=== PATIENT | female | born 1995 | race Caucasian/White ===

== ENCOUNTER 2016-11-09 17:00 | Emergency (ER) | payer OTHER | END 2016-11-09 18:00 | disposition home or self-care (01) | LOC: ER1 17:00 | DX: L02.11 Cutaneous abscess of neck (principal); F17.210 Nicotine dependence, cigarettes, uncomplicated | CPT/HCPCS: 10061; 87070; 87077; 87186; 87205; 99283 ==

== ENCOUNTER 2020-11-29 05:51 | Inpatient (IN) | payer OTHER ==
[~2020-11-29] VITALS: Ht 157.5 cm; Wt 97.5 kg
[2020-11-29 07:50] LABS: HEMOGLOBIN 10.3 gm/dl (12.3-15.3); RED BLOOD COUNT 3.67 M/UL (4.00-5.10); WHITE BLOOD COUNT 13.5 K/UL (4.5-11.0)
[2020-11-30] MEDS ORDERED: IBUPROFEN600 MG PO (10:52)
[2020-11-30] MEDS ORDERED: STOOL SOFTENER100 MG PO (10:52)
[2020-11-30] MEDS ORDERED: HYDROCODON-ACE1 EAC4 PO (10:54)
== END 2020-11-30 02:55 | disposition home or self-care (01) | DRG 807 ==
LOC: OB 05:51
PROVIDERS: ADMIT Obstetrics & Gynecology
PROC: 4A1HX4Z Monitoring of Products of Conception, Cardiac Electrical Activity, External Approach (ICD-10-PCS; principal; 2020-11-29)
PROC: 10E0XZZ Delivery of Products of Conception, External Approach (ICD-10-PCS; 2020-11-29)
PROC: 10907ZC Drainage of Amniotic Fluid, Therapeutic from Products of Conception, Via Natural or Artificial Opening (ICD-10-PCS; 2020-11-29)
PROC: 0HQ9XZZ Repair Perineum Skin, External Approach (ICD-10-PCS; 2020-11-29)
PROC: 3E033VJ Introduction of Other Hormone into Peripheral Vein, Percutaneous Approach (ICD-10-PCS; 2020-11-29)
DX: O48.0 Post-term pregnancy (principal); Z37.0 Single live birth; O34.211 Maternal care for low transverse scar from previous cesarean delivery; N85.8 Other specified noninflammatory disorders of uterus; Z3A.40 40 weeks gestation of pregnancy; O70.0 First degree perineal laceration during delivery; B18.2 Chronic viral hepatitis C; Z20.822 Contact with and (suspected) exposure to COVID-19
CPT/HCPCS: 36415; 59025; 81001; 82800; 85025; J2405; J2795; J3010; J7120

== ENCOUNTER 2021-03-20 12:32 | Emergency (ER) | payer OTHER ==
[~2021-03-20] VITALS: Ht 160 cm; Wt 81.6 kg
[~2021-03-20 12:32] MED LIST: HYDROCODON-ACE1 EAC4 PO; IBUPROFEN600 MG PO; STOOL SOFTENER100 MG PO
[2021-03-20 14:02] LABS: HEMOGLOBIN 13.2 gm/dl (12.3-15.3); RED BLOOD COUNT 4.64 M/UL (4.00-5.10); WHITE BLOOD COUNT 4.5 K/UL (4.5-11.0)
[2021-03-20 14:19] LABS: BUN/CREATININE RATIO 18 (0-10)
== END 2021-03-20 16:55 | disposition home or self-care (01) ==
LOC: ER1 12:32
PROVIDERS: Emergency Medicine
DX: O98.53 Other viral diseases complicating the puerperium (principal); U07.1 COVID-19; Z23 Encounter for immunization
CPT/HCPCS: 80053; 84703; 85025; 99284; M0243

== ENCOUNTER → 2021-06-16 | Outpatient (CLI) | payer OTHER | LOC: KOH-I 15:56 | DX: J06.9 Acute upper respiratory infection, unspecified (principal) | CPT/HCPCS: 71046 ==